=== PATIENT | male | born 1975 | race Caucasian/White ===

== ENCOUNTER 2025-09-02 14:28 | Emergency (ER) | payer MEDICAID, OTHER ==
[~2025-09-02] VITALS: Ht 177.8 cm; Wt 102.0 kg
[~2025-09-02 14:28] MED LIST: HYDR-3965 PO; NO HOME MEDS
[2025-09-02 14:51] VITALS: BP 169/94; PULSE 74; RESP 18; TEMP 97.8; O2SAT 98
--- NOTE | 2025-09-02 15:02 | Physician Documentation ---
History of Present Illness ~ Chief Complaint: Blurred Vision Stated Complaint: VISION COMPLICATIONS Time Seen by MD: 16:47 OK to notify your PCP?: Yes Primary Medical Doctor: magi Source: patient, RN/MD, RN notes reviewed, old records Mode of Arrival: POV Exam Limitations: no limitations HPI This is a 49-year-old male who presents with one-week of painless progressively worsening vision loss in his left eye. He reports symptoms starting one week ago. Patient reports a spot in his left lateral peripheral vision that has gradually grew to obscure his entire left peripheral vision over the past week. PMH high blood pressure. Denies neck pain, headache. Medication Reconciliation Allergies: Coded Allergies: Penicillins (Verified Allergy, Intermediate, HIVES, 03/27/12) Scheduled Hydrocodone Bit/Acetaminophen 5/325 MG ([place] 5/325 MG), 1 TAB PO Q6H Miscellaneous Medications Home Med List (No Home Medications), (Reported) Past Medical History Past Medical History: No Pertinent History Past Surgical History: colectomy, other Alcohol Use: Occasionally Drug Use: methamphetamine, other Review of Systems All Other Systems at this time: Reviewed and Negative ROS As stated above in the HPI, otherwise all systems are reviewed and negative. Physical Exam Vital Signs: RN Vital Signs have been reviewed: Yes, Temperature: 97.8, Heart Rate: 74, Respiratory Rate: 18, BP: 169/94, Pulse Oximetry: 98, Weight: 102.000 Physical Exam VITALS: Reviewed and as above. GENERAL: Alert, nontoxic appearing, no apparent distress. HEENT: Right eye normal red reflexes, left eye decreased reflexes RESPIRATORY: No increased work of breathing, no respiratory distress, speaking in full clear sentences CHEST: Clear to auscultation bilaterally without wheezes, rales or rhonchi. No accessory muscle use. No dullness to percussion. CV: Rate regular and rhythmic. S1, S2. No murmurs. Palpation of the chest wall was normal. No rubs or thrills. Abdomen: Soft, nontender and nondistended. Positive bowel sounds. No guarding or rebound. No hepatosplenomegaly or palpable masses. Extremities: No cyanosis, clubbing or edema. The patient moves all extremities. Pulses were equal and symmetric. MUSCULOSKELETAL: SKIN: [place], warm and dry with no rashes. NEURO: Motor systems are grossly intact. Progress Progress Note 16:59 Spoke with [facility]. 17:[address] Medina 17:35 spoke with lower in supervisor. Results/Orders Reviewed/noted all lab results: Yes Results/Orders Re-Evaluation Re-Evaluation : Re-Evaluation: Improved Medical Decision Making Additional information obtaine: old records Findings MSE performed in triage and patient returned to ED lobby by nursing staff to await available ED room Patient was seen and examined. Patient is given reassurance. Patient had decreased vision on the left eye and no decrease red reflex. Patient most likely has a vitreous hemorrhage. Instructions was given to the patient. Patient will follow up with Ophthalmology. Ear Diff. Dx: Considerations: Include: Other Eye Diff. Dx: Considerations: Include: [place], Conjuctivits-allergic, Conjuctivitis-bacterial, Conjuctivits-chlamydial, Conjuctivitis-viral, Corneal abrasion, Corneal laceration, Corneal ulceration, Foreign body-conjuctiva, Foreign body-corneal, Foreign body-intraocular, Foreign body-lid, Glaucoma, Globe rupture, Hordeolum, Iritis, Orbital cellulitis, Periobital cellulitis, Retinal artery occulsion, Retinal vein occlusion, Rust ring, Subconjunctival hem, Ultraviolet keratitis, Uveitis, Vitreous hemorrhage, Other Nose Diff. Dx: Considerations: Include: Other Tooth Diff. Dx: Considerations: Include: Other Throat Diff Dx: Considerations: Include: Other Departure Disposition: 01 HOME / SELF CARE / HOMELESS Impression: Primary Impression: Vitreous hemorrhage of left eye Additional Impression: Blurred vision, left eye Condition: Stable Discharge Instructions: Blurred Vision, Adult Additional Instructions: Follow up with Dr. Magdaleno at 8:30 a.m. at [id number] Referrals: NO PRIMARY CARE PROVIDER (PCP) Education Educated: Patient Educated regarding: treatment Signature Scribe Signature: Scribed for Darrell Martinez MD by Susan Stover . 09/02/25 17:00 Attestation: The note accurately reflects work and decisions made by me.Darrell Martinez MD 09/02/25 18:46 ALESSANDRO ADAMES Sep 02, 2025 15:02 LINWOOD MARTINEZ Sep 02, 2025 17:02 DARRELL MARTINEZ MD Sep 02, 2025 18:46
== END 2025-09-02 18:58 | disposition home or self-care (01) ==
LOC: ER 14:28
DX: H43.12 Vitreous hemorrhage, left eye (principal); H54.62 Unqualified visual loss, left eye, normal vision right eye; F15.90 Other stimulant use, unspecified, uncomplicated; F19.90 Other psychoactive substance use, unspecified, uncomplicated; I10 Essential (primary) hypertension; Z88.0 Allergy status to penicillin; Z90.49 Acquired absence of other specified parts of digestive tract; Z79.899 Other long term (current) drug therapy; Z72.89 Other problems related to lifestyle
CPT/HCPCS: 99282